=== PATIENT | male | born 2000 | race Caucasian/White ===

== ENCOUNTER 2020-12-07 10:40 | Emergency (ER) | payer OTHER ==
[~2020-12-07] VITALS: Ht 167.6 cm; Wt 86.0 kg
[2020-12-07 12:26] LABS: BASO # 0.1 10^3/uL (0.0-0.2); BASO % 0.9 % (0.0-1.0); EOS # 0.3 10^3/uL (0.0-0.5); EOS % 4.6 % (0.0-3.0); HEMOGLOBIN 15.2 g/dl (13.5-17.5); LYMPH # 1.9 10^3/uL (1.5-5.0); LYMPH % 35.8 % (24.0-44.0); MEAN CORPUSCULAR HEMOGLOBIN 27.4 pg (27.0-33.0); MEAN CORPUSCULAR VOLUME 82.9 fl (80.0-96.0); MONO # 0.6 10^3/uL (0.0-0.8); MONO % 10.6 % (2.0-8.0); NEUTROPHILS # 2.6 10^3/uL (1.5-8.5); NEUTROPHILS % 47.4 % (36.0-66.0); PLATELET COUNT, AUTOMATED 227 10^3/uL (150-450); RED BLOOD COUNT 5.55 10^6/uL (4.30-6.10); WHITE BLOOD COUNT 5.4 10^3/uL (4.0-10.0)
[2020-12-07] MEDS ORDERED: NS 1,000 ML IV ONE (13:05)
[2020-12-07] MEDS ORDERED: ISOVUE-370 76% 100ML VIAL As Ordered ONE (13:05)
--- NOTE | 2020-12-07 13:32 | REP ---
INDICATION: rlq pain. COMPARISON: None. TECHNIQUE: Standard helical technique after the intravenous administration of 100 cc Isovue 370. Oral bowel preparatory contrast was not administered prior to the exam. FINDINGS: The lung bases are clear. The liver, gallbladder, spleen, pancreas, adrenal glands, and kidneys are within normal limits. The abdominal aorta and para-aortic regions are within normal limits. The appendix is well visualized and is within normal limits. There is no free fluid or free air. There is no mass or adenopathy. The imaged osseous structures are within normal limits. IMPRESSION: CT findings are within normal limits. <Electronically signed by Sharath Martin > 12/07/20 [id number]
[2020-12-07] MEDS ORDERED: ONDANSETRON 4MG/2ML VIAL IV ONE (14:00)
[2020-12-07 14:06] LABS: ALBUMIN 4.8 GM/DL (3.2-5.2); BILIRUBIN,DIRECT 0.1 MG/DL (0.0-0.2); BILIRUBIN,TOTAL 0.6 MG/DL (0.2-1.0); TOTAL PROTEIN 8.2 GM/DL (6.4-8.2)
[2020-12-07] MEDS ORDERED: ONDA4TAB6 PO (14:54)
[2020-12-07 15:05] VITALS: BP 121/67
--- NOTE | 2020-12-07 15:11 | ECGEPIP ---
[facility] - ED Test Date: 2020-12-07 Pat Name: MARILEE SENA Department: Room: - Gender: Male [employer]: ZEESHAN : 2000 Requested By: ONEL Street Order Number: [id number] Reading MD: Michael Zapata Measurements Intervals [place] Rate: 50 P: 41 MO: 148 QRS: 84 QRSD: 106 T: 41 QT: 410 QTc: 373 Interpretive Statements Sinus bradycardia POOR R WAVE PROGRESSION BENIGN EARLY REPOLARIZATION NO PRIORS FOR COMPARISON Electronically Signed on 12-07-2020 15:11:16 EDT by Michael Zapata
== END 2020-12-07 15:07 | disposition home or self-care (01) ==
LOC: M ED 10:40
DX: R11.2 Nausea with vomiting, unspecified (principal); R00.1 Bradycardia, unspecified; J45.909 Unspecified asthma, uncomplicated
CPT/HCPCS: 74177; 80047; 80076; 83690; 85025; 93005; 96374; 99284; J2405; Q9967

== ENCOUNTER 2021-04-18 09:16 | Emergency (ER) | payer OTHER ==
[~2021-04-18] VITALS: Ht 167.6 cm; Wt 92.4 kg
[~2021-04-18 09:16] MED LIST: ONDA4TAB6 PO
[2021-04-18 13:29] LABS: BASO # 0.1 10^3/uL (0.0-0.2); BASO % 0.7 % (0.0-1.0); EOS # 0.5 10^3/uL (0.0-0.5); EOS % 6.5 % (0.0-3.0); HEMOGLOBIN 14.2 g/dl (13.5-17.5); LYMPH # 2.3 10^3/uL (1.5-5.0); LYMPH % 31.8 % (24.0-44.0); MEAN CORPUSCULAR VOLUME 81.9 fl (80.0-96.0); MONO # 0.7 10^3/uL (0.0-0.8); MONO % 10.3 % (2.0-8.0); NEUTROPHILS # 3.6 10^3/uL (1.5-8.5); NEUTROPHILS % 49.7 % (36.0-66.0); PLATELET COUNT, AUTOMATED 235 10^3/uL (150-450); RED BLOOD COUNT 5.25 10^6/uL (4.30-6.10); WHITE BLOOD COUNT 7.2 10^3/uL (4.0-10.0)
[2021-04-18 13:51] LABS: MONO SCRN NEGATIVE (NEGATIVE)
[2021-04-18 13:53] LABS: BLOOD UREA NITROGEN 13 MG/DL (7-18); CALCIUM LEVEL 9.6 MG/DL (8.5-10.1); CARBON DIOXIDE LEVEL 27 MEQ/L (21-32); CHLORIDE LEVEL 106 MEQ/L (98-107); CREATININE FOR GFR 0.97 MG/DL (0.70-1.30); GLOMERULAR FILTRATION RATE > 60.0 (>60); GLUCOSE, FASTING 98 MG/DL (70-100); POTASSIUM SERUM 4.1 MEQ/L (3.5-5.1); SODIUM LEVEL 138 MEQ/L (136-145)
[2021-04-18] MEDS ORDERED: ISOVUE-370 76% 100ML VIAL As Ordered ONE (14:04)
--- NOTE | 2021-04-18 14:29 | REP ---
INDICATION: rectal bleeding. COMPARISON: 12/07/2020 TECHNIQUE: Standard helical technique after the intravenous administration of 100 cc Isovue 370 FINDINGS: The lung bases are clear and unchanged. The liver, gallbladder, spleen, pancreas, adrenal glands, and kidneys are again seen to be within normal limits. The abdominal aorta and para-aortic regions are again seen to be within normal limits. The bowel loops and the mesenteries are essentially unchanged and again seen to be within normal limits. There is no free fluid or free air. There is no evidence of a mass or adenopathy Bone window technique throughout the examination shows the osseous structures to be stable and intact IMPRESSION: There is no evidence of acute disease or significant change compared to the prior exam with findings as described above. <Electronically signed by Sharath Martin > 04/18/21 [id number]
[2021-04-18 14:36] LABS: ALBUMIN 4.2 GM/DL (3.2-5.2); ALT/SGPT 22 U/L (12-78); BILIRUBIN,DIRECT < 0.1 MG/DL (0.0-0.2); BILIRUBIN,TOTAL 0.4 MG/DL (0.2-1.0); LIPASE 80 U/L (73-393); TOTAL PROTEIN 7.9 GM/DL (6.4-8.2)
[2021-04-18 15:02] VITALS: BP 135/80
== END 2021-04-18 15:05 | disposition home or self-care (01) ==
LOC: M ED 09:16
DX: K62.5 Hemorrhage of anus and rectum (principal); J45.909 Unspecified asthma, uncomplicated; F17.290 Nicotine dependence, other tobacco product, uncomplicated
CPT/HCPCS: 74177; 80048; 80076; 83690; 85025; 86308; 87798; 99284; Q9967

== ENCOUNTER 2021-09-01 08:10 | Emergency (ER) | payer OTHER ==
[~2021-09-01] VITALS: Ht 167.6 cm; Wt 96.1 kg
[2021-09-01] MEDS ORDERED: METOCLOPRAMIDE INJ 10MG/2ML VIAL (J2765 PER 1) IV ONE (10:05)
[2021-09-01] MEDS ORDERED: NS 1,000 ML IV ONE (10:05)
[2021-09-01] MEDS ORDERED: KETOROLAC 30 MG/ML 1ML VIAL IV ONE (10:05)
[2021-09-01 10:32] LABS: BASO # 0.1 10^3/uL (0.0-0.2); BASO % 1.2 % (0.0-1.0); EOS # 0.3 10^3/uL (0.0-0.5); EOS % 5.6 % (0.0-3.0); HEMATOCRIT 42.4 % (42.0-52.0); HEMOGLOBIN 14.1 g/dl (13.5-17.5); LYMPH # 1.8 10^3/uL (1.5-5.0); LYMPH % 29.6 % (24.0-44.0); MEAN CORPUSCULAR HGB CONC 33.3 g/dl (32.0-36.5); MEAN CORPUSCULAR VOLUME 81.2 fl (80.0-96.0); MONO # 0.7 10^3/uL (0.0-0.8); MONO % 11.1 % (2.0-8.0); NEUTROPHILS # 3.1 10^3/uL (1.5-8.5); NEUTROPHILS % 51.3 % (36.0-66.0); PLATELET COUNT, AUTOMATED 234 10^3/uL (150-450); RED BLOOD COUNT 5.22 10^6/uL (4.30-6.10); WHITE BLOOD COUNT 5.9 10^3/uL (4.0-10.0)
[2021-09-01 10:59] LABS: BLOOD UREA NITROGEN 14 MG/DL (7-18); CALCIUM LEVEL 9.7 MG/DL (8.5-10.1); CARBON DIOXIDE LEVEL 26 MEQ/L (21-32); CHLORIDE LEVEL 106 MEQ/L (98-107); CREATININE FOR GFR 1.12 MG/DL (0.70-1.30); GLOMERULAR FILTRATION RATE > 60.0 (>60); GLUCOSE, FASTING 97 MG/DL (70-100); POTASSIUM SERUM 4.1 MEQ/L (3.5-5.1); SODIUM LEVEL 139 MEQ/L (136-145)
[2021-09-01 11:19] VITALS: BP 131/72
== END 2021-09-01 11:27 | disposition home or self-care (01) ==
LOC: M ED 08:10
DX: R51.9 Headache, unspecified (principal)
CPT/HCPCS: 70450; 80048; 85025; 99284; J1885; J2765

== ENCOUNTER 2021-10-24 17:07 | Emergency (ER) | payer OTHER ==
[~2021-10-24] VITALS: Ht 167.6 cm; Wt 96.2 kg
[2021-10-24 17:07] VITALS: BP 161/77
[2021-10-24] MEDS ORDERED: CIPRODEX OTIC SUSP 7.5ML AS STA (17:26)
[2021-10-24] MEDS ORDERED: AUGMENTIN 875 MG TAB PO ONE (17:30)
[2021-10-24] MEDS ORDERED: KETOROLAC 30 MG/ML 1ML VIAL IV ONE (17:30)
[2021-10-24] MEDS ORDERED: AMOX875T2 PO (17:44)
[2021-10-24] MEDS ORDERED: NAPR-837 PO (17:44)
== END 2021-10-24 17:52 | disposition home or self-care (01) ==
LOC: M ED 17:07
DX: H66.012 Acute suppurative otitis media with spontaneous rupture of ear drum, left ear (principal)
CPT/HCPCS: 96374; 99282; J1885

== ENCOUNTER 2022-04-24 06:48 | Emergency (ER) | payer OTHER ==
[~2022-04-24] VITALS: Ht 167.6 cm; Wt 95.0 kg
[~2022-04-24 06:48] MED LIST changes: +AMOX875T2 PO; +NAPR-837 PO
[2022-04-24] MEDS ORDERED: ONDA4TAB6 PO (08:37)
[2022-04-24] MEDS ORDERED: OSEL75CA PO (08:37)
[2022-04-24 09:11] VITALS: BP 115/58
== END 2022-04-24 09:13 | disposition home or self-care (01) ==
LOC: M ED 06:48
DX: J09.X2 Influenza due to identified novel influenza A virus with other respiratory manifestations (principal); F17.290 Nicotine dependence, other tobacco product, uncomplicated; F17.200 Nicotine dependence, unspecified, uncomplicated